=== PATIENT | male | born 1990 ===

== ENCOUNTER → 2018-06-24 21:08 | Emergency (ER) | payer MEDICAID ==
--- NOTE | 2018-06-24 22:13 | ED ---
Lower Extremity - HPI Summary HPI Summary: 27-year-old male presents with right foot injury today. He states that he slammed it on the ground and hit it on a metal beam. He states that he was able to ambulate and now is having pain over his fifth metatarsal. he denies any nubmness or tingling. no other injury. Has no medical conditions. - History of Current Complaint Chief Complaint: EDExtremityLower Stated Complaint: INJURY TO RT ANKLE Time Seen by Provider: 06/24/18 21:22 Pain Intensity: 6 - Allergies/Home Medications Allergies/Adverse Reactions: Allergies Allergy/AdvReac Type Severity Reaction Status Date / Time No Known Allergies Allergy Verified 06/24/18 21:11 Home Medications: Home Medications NK [No Home Medications Reported] 06/24/18 [History Confirmed 06/24/18] PMH/Surg Hx/FS Hx/Imm Hx Endocrine/Hematology History: Denies: Hx Anticoagulant Therapy Respiratory History: Denies: Hx Asthma Infectious Disease History: No Infectious Disease History: Denies: Traveled Outside the [place] in Last 30 Days - Family History Known Family History: Positive: Non-Contributory - Social History Alcohol Use: Occasionally Substance Use Type: Reports: None Smoking Status (MU): Former Smoker Review of Systems Negative: Fever Negative: Chest Pain Negative: Shortness Of Breath Positive: Myalgia - right foot pain All Other Systems Reviewed And Are Negative: Yes Physical Exam Triage Information Reviewed: Yes Vital Signs On Initial Exam: Initial Vitals Temp Pulse Resp BP Pulse Ox 99.2 F 76 16 128/87 95 06/24/18 21:09 06/24/18 21:09 06/24/18 21:09 06/24/18 21:09 06/24/18 21:09 Vital Signs Reviewed: Yes Appearance: Positive: Well-Appearing Skin: Positive: Warm, Dry Head/Face: Positive: Normal Head/Face Inspection Eyes: Positive: Normal, Conjunctiva Clear ENT: Positive: Pharynx normal Respiratory/Lung Sounds: Positive: Clear to Auscultation, Breath Sounds Present Cardiovascular: Positive: Normal, RRR Musculoskeletal: Positive: Strength/ROM Intact - right foot, Other - tenderness right foot Neurological: Positive: Normal Psychiatric: Positive: Normal Diagnostics - Vital Signs Vital Signs Temp Pulse Resp BP Pulse Ox 06/24/18 21:09 99.2 F 76 16 128/87 95 - Laboratory Lab Statement: Any lab studies that have been ordered have been reviewed, and results considered in the medical decision making process. - Radiology foot Radiology Interpretation Completed By: ED Physician Summary of Radiographic Findings: no fracture Lower Extremity Course/Dx - Course Course Of Treatment: 27-year-old male presents with right foot injury today. He states that he slammed it on the ground and hit it on a metal beam. He states that he was able to ambulate and now is having pain over his fifth metatarsal. he denies any nubmness or tingling. no other injury. Has no medical conditions. On exam has tenderness over fifth metatarsal. Neurovascular intact. X-ray read by me as no fracture. Told to ice and elevate. Patient understands agrees with plan. - Diagnoses Differential Diagnosis/HQI/PQRI: Positive: Fracture (Closed), Sprain, Strain Provider Diagnoses: Right foot pain Discharge - Sign-Out/Discharge Documenting (check all that apply): Patient Departure Patient Received Moderate/Deep Sedation with Procedure: No - Discharge Plan Condition: Good Disposition: HOME Patient Education Materials: R.I.C.E. Treatment (ED) Referrals: [facility] – [place] PHYSICIAN REFERRAL [Outside] Additional Instructions: Wear hard sole shoes Ice, elevate Take Tylenol or ibuprofen for pain every 6 hours as needed establish care with primary to follow up if no improvement Return to ED if develop or any new or worsening symptoms - Billing Disposition and Condition Condition: GOOD Disposition: Home
[2018-06-24 22:23] VITALS: BP 131/68
== END | disposition home or self-care (01) ==
LOC: ED 21:08
DX: M79.671 Pain in right foot (principal); Z87.891 Personal history of nicotine dependence
CPT/HCPCS: 99282